=== PATIENT | female | born 1975 | race Caucasian/White ===

== ENCOUNTER → 2018-08-29 09:14 | Outpatient (CLI) | payer OTHER, SELFPAY ==
[2018-08-29 09:02] VITALS: BMI 34.4
--- NOTE | 2018-08-29 09:20 | RAD_ITS ---
STUDY: X-RAY CHEST REASON FOR EXAM: Female, 43 years old. Cough. Asthma. TECHNIQUE: PA and lateral views of the chest. COMPARISON: None. FINDINGS: Cardiac silhouette unremarkable. Pulmonary vascularity unremarkable. Aorta unremarkable. No focal patchy airspace opacities. No pleural effusions. Upper abdomen unremarkable. Osseous structures intact. No pneumothorax. RAD/Chest PA and Lateral IMPRESSION: No acute cardiopulmonary findings Electronically Signed: Quinn Gerard DO at 10:03 EDT Tel , Service support ,
== END ==
PROVIDERS: Family Provider Family Medicine; PCP Family Medicine; Referring Provider Physician Assistant; Visit Provider Physician Assistant
DX: J45.901 Unspecified asthma with (acute) exacerbation (principal)
CPT/HCPCS: 71046

== ENCOUNTER 2020-08-08 12:37 | Outpatient (RCR) | payer OTHER, SELFPAY ==
[2019-04-12 14:31] VITALS: BMI 34.4
== END 2020-08-08 23:59 ==
LOC: IMMUN 12:37
PROVIDERS: PCP Nurse Practitioner Family; Visit Provider Family Medicine
DX: Z23 Encounter for immunization (principal)
CPT/HCPCS: 0011A; 0012A

== ENCOUNTER 2021-01-04 21:11 | Emergency (ER) | payer OTHER, SELFPAY ==
[2020-10-22 13:51] VITALS: BMI 34.4
[2021-01-04 21:12] VITALS: BP 131/81; PULSE 106; RESP 16; TEMP 36.6; O2SAT 96; BMI 33.3
--- NOTE | 2021-01-04 21:24 | RAD_ITS ---
STUDY: X-RAY - RIGHT KNEE REASON FOR EXAM: Female, 45 years old. Injury TECHNIQUE: 4 view(s) of the knee. COMPARISON: None. FINDINGS: Normal visualized distal femur. Normal visualized proximal tibia and fibula. Normal proximal tibiofibular articulation. Normal medial femorotibial compartment. Normal lateral femorotibial compartment. Normal patellofemoral articulation. The soft tissue structures are unremarkable. RAD/Knee 4 or More Views IMPRESSION: Normal x-ray examination of the knee. Electronically Signed: Dheeraj Hernandez DO at 22:40 EDT Tel [phone], Service support ,
--- NOTE | 2021-01-04 21:24 | CT_ITS ---
STUDY: CT BRAIN WITHOUT CONTRAST REASON FOR EXAM: Female, 45 years old. Head injury RADIATION DOSAGE (If Supplied By Facility): CTDIvol = ( 44.99 ) mGy, DLP = ( 849.54 ) mGycm TECHNIQUE: Transaxial CT imaging of the brain was performed without administration of intravenous contrast material. Individualized dose optimization techniques were used for this CT. COMPARISON: No relevant priors. FINDINGS: There is a left parietal scalp hematoma near the vertex. Normal calvarium. Normal size ventricles and extra-axial spaces for the patient''s age. Normal white matter tracts of the cerebral hemispheres. Normal basal ganglia and thalami. Normal brainstem. Normal cerebellum. There is no intracranial hemorrhage. There are no findings of an acute ischemic infarction. Mucosal thickening of the visualized paranasal sinuses. CT/Brain/Head without Contrast IMPRESSION: No acute intracranial pathology of the brain. Left parietal scalp hematoma. Paranasal sinus disease. Electronically Signed: Dheeraj Hernandez DO at 22:34 EDT Tel [phone], Service support ,
--- NOTE | 2021-01-04 21:25 | EDS_ITS ---
HPI History of Present Illness Chief Complaint: Head Injury Detail of Chief Complaint: Fall with head injury Informant: patient Narrative Narrative: Patient presents the emergency department after sustaining a fall off her porch this evening. Patient states that she was getting rid of some empty bottles into some garbage cans but fell off the deck about 4 5 feet landing on a garbage cans. She denies loss of consciousness. She complains of a headache. She is up-to-date on tetanus. Patient has been ambulatory since the fall but complains of bilateral knee pain. She denies neck pain, chest pain, or abdominal pain. Prior similar symptoms: No PFSH PFSH Medical History (Updated 01/04/21 @ 22:[address] Tanya Richards, DO) Asthma Gestational diabetes Hemorrhoids SOB (shortness of breath) Home Medications albuterol sulfate 90 mcg/actuation aerosol inhaler INHALATION 17 Days #18 g 06/16/18 [History Last Taken Unknown] montelukast 10 mg tablet PO 30 Days #30 tab 06/16/18 [History Last Taken Unknown] methylprednisolone 4 mg tablets in a dose pack See Rx Instructions PO PER PKG D IR #21 tab 08/29/18 [Rx Last Taken Unknown] Allergy/AdvReac Type Severity Reaction Status Date / Time No Known Allergies Allergy Unverified 01/04/21 21:14 Surgical History H/O section History of laparoscopy Social History (Updated 08/29/18 @ 10:12 by Singh WANG, PA) Smoking Status: Former smoker alcohol intake: current alcohol intake frequency: holidays/special occasions only Alcohol type: beer and wine ROS ROS ED Constitutional Constitutional ED: Reports systems reviewed and no addt'l complaints, except as documented; Denies body ache(s), change in weight or chills Eyes Eyes: Denies acute decrease in peripheral vision, change in vision, double vision or loss of vision ENT ENT ED: Reports none; Denies ear pain, lip swelling, loss taste/smell, neck pain, otalgia or sore throat Cardiovascular Cardiovascular: Reports none; Denies abdominal pain, chest pain with activity, leg edema, lightheadedness, palpitations, rapid heart rate or syncope Respiratory/Chest Respiratory/Chest: Reports none; Denies change in mental status, dry cough, dyspnea, hemoptysis, shortness of breath at rest or shortness of breath with exertion Gastrointestinal Gastrointestinal: Reports none; Denies abdominal pain, change in stool character, diarrhea, hematemesis, hematochezia, melena, rectal bleeding or vomiting Genitourinary Genitourinary ED: Reports none; Denies abdominal discomfort, anuria, dysuria, genital pain or polyuria Musculoskeletal Musculoskeletal: Reports none and other Details: Bilateral knee pain ; Denies arthralgias, back pain, difficulty walking, extremity pain, muscle weakness or myalgias Integumentary Reports none; Denies abscess or rash Neurologic Neurologic: Reports headache(s) Psychiatric Psychiatric: Reports systems reviewed and no addt'l complaints, except as documented and none; Denies behavioral changes, confusion, difficulty concentrating, hallucinations, suicidal ideation, tactile hallucinations or visual hallucinations Endocrine Endocrinology: Denies none, cold intolerance, excessive sweating, fatigue or heat intolerance Hematologic/Lymphatic Hematologic/Lymphatic: Reports none; Denies anemia, easy bleeding or easy bruising Allergic/Immunologic Allergic/Immunologic ED: Denies as per HPI, none, lip swelling, mouth swelling, throat swelling, tongue swelling or hives EXAM Physical Exam Const Vital Signs: 01/04/21 21:12 01/04/21 21:28 Temperature 98 F Temperature Source Temporal Pulse Rate 106 H Respiratory Rate 16 Respiratory Depth Normal Respiratory Pattern Normal Blood Pressure 131/81 H Blood Pressure Mean 97 Pulse Ox 96 Oxygen Delivery Method Room Air Positive well nourished and well developed General Appearance ED: well developed and NAD HEENT Reports TM's clear and moist mucous membranes HEENT Narrative: Patient has a hematoma to the left posterior occiput without bony step-offs noted. normocephalic; Negative for trauma or tenderness Tympanic Membrane ED: Yes TM's clear Eyes PERRL and EOMs intact bilaterally General Eye ED: Negative for pale conjunctiva or scleral icterus Neck no lymphadenopathy, supple and no JVD General: Negative for tenderness Chest Wall inspection of chest normal and palpation of chest normal Chest: Negative for tenderness Resp normal respiratory effort and clear to auscultation bilaterally Effort and Inspection: Negative for respiratory distress or pain with movement Auscultation: Negative for rhonchi, wheezes or diminished lung sounds Cardio regular rate, regular rhythm, S1 normal heart sound, S2 normal heart sound and no murmurs Peripheral Pulses: pulses 2+ throughout GI normal to inspection, nondistended, normoactive bowel sounds, soft to palpation, non-tender, non-distended and no masses Back/Spine no CVA tenderness and no thoracic nor lumbar tenderness Extremity Extremity Narrative: Patient has superficial abrasions to the right anterior knee with mild diffuse bony tenderness on exam. Patient with mild diffuse tenderness over the left knee as well. Good range of motion in flexion extension. No obvious deformity. Neurovascular intact distally. General Extremety ED: Negative for edema General Extremity: Negative for edema Neuro oriented x3, CN's II-XII intact bilaterally, no sensory deficits noted and gait normal Sensorium / Orientation: awake, alert, oriented to person, oriented to place and oriented to time Motor Exam: strength 5/5 throughout and strength abnormal Psych mental status grossly normal Skin no rashes or lesions noted and no wounds MDM MDM MDM Narrative Medical decision making narrative: Patient advised to use Tylenol for dis comfort. She will be given an Ezra wrap for her knee. Patient to follow-up with her primary care physician 3 to 5 days. Radiography Diagnostic Testing: Radiology Impression Brain CT 01/04/21 21:24 IMPRESSION: No acute intracranial pathology of the brain. Left parietal scalp hematoma. Paranasal sinus disease. Electronically Signed: Dheeraj Hernandez DO at 22:34 EDT Tel [phone], Service support , Knee X-Ray 01/04/21 21:24 IMPRESSION: Normal x-ray examination of the knee. Electronically Signed: Dheeraj Hernandez DO at 22:40 EDT Tel [phone], Service support , Cervical Spine X-Ray 01/04/21 21:35 IMPRESSION: Mild degenerative changes of the visualized cervical spine. Mild compression of C5, likely nonacute. Electronically Signed: Dheeraj Hernandez DO at 22:40 EDT Tel [phone], Service support , Three-view x-rays of patient's C-spine obtained interpreted by myself as no acute fractures or dislocations. Radiology felt there may be an old slight compression fracture of C5. Patient had x-rays of the right knee which were interpreted by myself as no acute fractures or dislocations. Radiology was in agreement. Discharge Plan Triage Chief Complaint: Head Injury ED Provider: Tanya Richards Dx/Rx/DC Orders Clinical Impression: Fall, Closed head injury, Contusion of knee Instructions: ED Concussion, ED Contusion, Lower Extremity, ED Head Injury (Adult) Prescriptions: No Action montelukast 10 mg tablet PO 30 Days Qty: 30 RF: 0 albuterol sulfate 90 mcg/actuation HFA aerosol inhaler INHALATION 17 Days Qty: 18 RF: 0 methylprednisolone 4 mg tablets,dose pack See Rx Instructions PO PER PKG DIR Qty: 21 RF: 0 Primary Care Provider: Sandy Kirkpatrick NP Referrals: Sandy Kirkpatrick NP, [employer]IST[employer] MANAGER-C [Primary Care Provider] - 3-5 Days Disposition Disposition: Home, Self Care
--- NOTE | 2021-01-04 21:35 | RAD_ITS ---
STUDY: X-RAY - CERVICAL SPINE REASON FOR EXAM: Female, 45 years old. Fall TECHNIQUE: 3 view(s) of the cervical spine were obtained. COMPARISON: None FINDINGS: Normal anterior atlantoaxial articulation. Normal odontoid process. Normal cervical lordosis. Mild degenerative changes of the vertebral bodies. There is mild wedge compression of C5, likely nonacute.. Probable old C5 transverse process fracture. Normal disc space heights. The soft tissue structures are unremarkable. RAD/Cerv Spine 2 or 3 Views IMPRESSION: Mild degenerative changes of the visualized cervical spine. Mild compression of C5, likely nonacute. Electronically Signed: Dheeraj Hernandez DO at 22:40 EDT Tel [phone], Service support ,
[2021-01-04] MEDS: Acetaminophen 325 MG Tablet 650 MG PO (22:55)
== END 2021-01-04 23:04 | disposition home or self-care (01) ==
PROVIDERS: Emergency Provider Emergency Medicine; PCP Nurse Practitioner Family
DX: S00.03XA Contusion of scalp, initial encounter (principal); S80.01XA Contusion of right knee, initial encounter; M25.562 Pain in left knee; W17.89XA Other fall from one level to another, initial encounter; Y93.E9 Activity, other interior property and clothing maintenance; Y92.008 Other place in unspecified non-institutional (private) residence as the place of occurrence of the external cause; Y99.9 Unspecified external cause status; J45.909 Unspecified asthma, uncomplicated; Z79.899 Other long term (current) drug therapy; Z87.891 Personal history of nicotine dependence
CPT/HCPCS: 70450; 72040; 73564; 99283

== ENCOUNTER 2021-07-25 09:01 | Outpatient (CLI) | payer OTHER, SELFPAY ==
[2021-07-25 09:57] LABS: Hematocrit 38.4 % (37-47); Hemoglobin 12.3 g/dL (12.0-15.0); Mean Corpuscular Hgb 27.9 pg (27.0-32.0); Mean Corpuscular Volume 87.1 fL (81-99); Mean Platelet Vol. 10.3 fl (6.2-12.0); Platelet Count 285 K/mm3 (150-450); RBC Distribution Width CV 13.7 % (11.6-14.6); RBC Distribution Width SD 43.5 fl (35.1-43.9); Red Blood Count 4.41 M/mm3 (4.2-5.4); White Blood Count 6.7 K/mm3 (4.4-11.0)
== END 2021-07-25 23:59 | disposition home or self-care (01) ==
PROVIDERS: PCP Nurse Practitioner Family; Referring Provider Internal Medicine Pulmonary Disease; Visit Provider Internal Medicine Pulmonary Disease
DX: J45.909 Unspecified asthma, uncomplicated (principal)
CPT/HCPCS: 36415; 85027

== ENCOUNTER → 2022-07-31 | Outpatient (CLI) | payer OTHER, SELFPAY ==
[2022-07-31 12:43] LABS: Hematocrit 38.5 % (37-47); Mean Corp Hgb Conc 31.2 g/dL (32-36); Mean Corpuscular Hgb 27.6 pg (27.0-32.0); Mean Corpuscular Volume 88.7 fL (81-99); Mean Platelet Vol. 10.9 fl (6.2-12.0); Platelet Count 280 K/mm3 (150-450); RBC Distribution Width CV 13.1 % (11.6-14.6); RBC Distribution Width SD 42.7 fl (35.1-43.9); Red Blood Count 4.34 M/mm3 (4.2-5.4); White Blood Count 8.4 K/mm3 (4.4-11.0)
== END | disposition home or self-care (01) ==
LOC: LAB 11:27
PROVIDERS: PCP Nurse Practitioner Family; Referring Provider Internal Medicine Pulmonary Disease; Visit Provider Internal Medicine Pulmonary Disease
DX: J45.909 Unspecified asthma, uncomplicated (principal); R05.9 Cough, unspecified
CPT/HCPCS: 36415; 85027

== ENCOUNTER 2023-09-16 08:20 | Day surgery (SDC) | payer OTHER, SELFPAY ==
[2023-09-09 17:09] LABS: Absolute Neutrophil Count 5.4 X10^3/uL (2.0-7.7); Basophil# 0.03 X10^3/uL; Basophil% 0.4 % (0-1); Eosinophil# 0.14 X10^3/uL; Eosinophils% 1.8 % (0-5); Hematocrit 33.8 % (37-47); Hemoglobin 10.6 g/dL (12.0-15.0); Lymphocyte % 22.9 % (19-41); Mean Corp Hgb Conc 31.4 g/dL (32-36); Mean Corpuscular Hgb 27.1 pg (27.0-32.0); Mean Corpuscular Volume 86.4 fL (81-99); Mean Platelet Vol. 10.3 fl (6.2-12.0); Monocyte# 0.47 X10^3/uL; NRBC Flagged by Analyzer 0 % (0-5); Neutrophil # 5.39 X10^3/uL (2.7-7.7); Neutrophil % 68.5 % (47-70); Platelet Count 328 K/mm3 (150-450); RBC Distribution Width CV 13.6 % (11.6-14.6); RBC Distribution Width SD 42.4 fl (35.1-43.9); Red Blood Count 3.91 M/mm3 (4.2-5.4); White Blood Count 7.9 K/mm3 (4.4-11.0)
[2023-09-09 17:26] LABS: Anion Gap 5 (5-15); BUN 10 mg/dL (7-18); BUN/Creat Ratio 11.1 RATIO (10-20); Chloride 106 mmol/L (98-107); EST Glomerular Filtration Rate 70 mL/min (>60); Est Glom Filt Rate - Afr Amer 85 mL/min (>60); Glucose 117 mg/dL (74-106); Potassium 3.9 mmol/L (3.5-5.1); Sodium Level 140 mmol/L (136-145)
[2023-09-16 08:51] VITALS: BP 129/78; PULSE 74; RESP 16; TEMP 36.9; O2SAT 99; BMI 38.0
[2023-09-16] MEDS: Lactated Ringers 1,000 ML 15 ML IV (09:32)
[2023-09-16] MEDS: Cefazolin 2 GM in 0.9% Normal Saline (100mL Bag) 100 ML IV (11:07)
[2023-09-16] MEDS: Lidocaine 1%/Epi 1:200 (30ml) 30 ML AMPUL (11:29)
--- NOTE | 2023-09-16 11:39 | PCM.OPRPT ---
Report of Operation Date of Procedure: 09/16/23 Description of Surgical Findings:: Preoperative diagnosis: Left carpal Tunnel Syndrome Postoperative diagnosis: Left carpal Tunnel Syndrome Procedure: Left endoscopic Carpal Tunnel Release Surgeon: Aaron Pereira DO cardiology physician assistant: Soni Medina PA-C Retort Setter: Jade Anesthesia: MAC with local Anesthesiologist: Dr. Vaughn Complications: None Drains: None Estimated blood loss: 2 cc Urinary output: None measured IV fluids: Per anesthesia record Specimens: None Surgical implants: None Surgical indications: This is a 48 female seen in the outpatient setting diagnosed with left carpal tunnel syndrome. The patient failed nonoperative management in the form of bracing, anti-inflammatory medications, activity modification. Carpal tunnel syndrome was confirmed on EMG/NCV. Operative intervention in form of endoscopic possible open carpal tunnel release was offered to the left hand. The risks, benefits, alternatives to procedure were reviewed with patient at length in the outpatient setting and he agreed to proceed. Risks included but were not limited to bleeding, infection, loss of life or limb, risk of anesthesia, incomplete release, neurovascular injury, persistent pain, need for additional surgery, stiffness, loss of hand function. Patient expressed understanding wish to proceed with surgery. Informed consent obtained in the office. Description of procedure: Patient was seen in preoperative holding area. Patient was identified by name, medical record number, date of . The operative extremity was marked with a surgical marker. We confirmed informed consent with the patient and all questions were answered to the patient's satisfaction. At time of his procedure, patient was brought to the operative suite and positioned supine a standard operating table. All bony prominences were well-padded. General anesthesia was induced and endotracheal tube placed. The operative upper extremity was then prepped for surgery by first applying a well-padded pneumatic tourniquet to the left forearm. The hand table attached to the left side of the table. We spun the bed 90 degrees. I then administered tumescent field block with 15 cc total 1% lidocaine with epinephrine 1: 100,000. We prepped and draped the left hand and wrist in a normal, sterile orthopedic fashion. 2 g Ancef was administered prior to incision by anesthesia staff. We performed a timeout at this point confirming side, site, and operation to be performed. No concerns voiced and elected to proceed. I exsanguinated the left hand and wrist with an Esmarch bandage. Tourniquet was inflated to 250 mmHg which remained up for 3 minutes. I first marked a transverse incision on the ulnar aspect of the palmaris longus tendon in the proximal wrist crease approximately 1 cm in length. Skin was sharply incised with 15 blade scalpel. Superficial veins were cauterized with bipolar cautery. The fatty layer was dissected through bluntly until the antebrachial fascia was encountered. The antebrachial fascia were split in line with the fibers as well as the incision with the Littler scissors. I then placed a skin hook around the antebrachial fascia distally. I open the proximal 1 cm longitudinally of the antebrachial fascia. I then sequentially dilated within the carpal tunnel utilizing Arthrex supplied dilators. I then utilized there synovial elevator to debride the undersurface of the transverse carpal ligament free from synovium. I then removed the elevator and inserted the centerline endoscopic carpal tunnel release system. The transverse carpal ligament was well visualized and free from underlying synovium. I identified its distal aspect by blotting the skin and perivascular fat was visualized. I then carefully deployed the scalpel from the sheath and, in retrograde fashion, sequentially released the transverse carpal ligament longitudinally. No aberrancies of the median nerve were apparent. Complete release was confirmed with Littler scissors acting as a probe. The tourniquet was then deflated. There was excellent return of perfusion to the hand. Hemostasis was excellent. Skin was closed with a single horizontal mattress suture of 4-0 nylon suture. Sterile compression dressing was then applied. Patient tolerated procedure well without apparent complication.She was transferred to PACU in stable condition. Post Operative Plan: Weightbearing: Weightbearing less than 2 pounds operative extremity Antibiotics: Ancef 2 g x 1 dose preoperatively DVT Prophylaxis: None indicated Sotomayor: None Dressing: Okay to remove soft dressing on postoperative day #2 and shower. No tub soaks. X-Rays: 2 weeks postop in the office Pain Medication: Hydrocodone Rx upon discharge Follow-up: 2 weeks post-operatively in the office for suture removal.
[2023-09-16 11:40] VITALS: BP 119/79; BP 129/78; PULSE 91; RESP 16; TEMP 36.2; O2SAT 96
[2023-09-16 11:45] VITALS: BP 128/100; BP 129/78; PULSE 79; RESP 16; O2SAT 95
[2023-09-16 11:50] VITALS: BP 128/83; BP 129/78; PULSE 82; RESP 16; O2SAT 95
[2023-09-16 12:00] VITALS: BP 125/83; BP 129/78; PULSE 81; RESP 16; TEMP 36.1; O2SAT 100
[2023-09-16 12:45] VITALS: BP 129/78
== END 2023-09-16 12:52 | disposition home or self-care (01) ==
LOC: SDC 08:22 → AC 08:22
PROVIDERS: PCP Nurse Practitioner Family; Referring Provider Student in an Organized Health Care Education/Training Program; Visit Provider Student in an Organized Health Care Education/Training Program
PROC: (CPT 29848; principal; 2023-09-16 10:00)
DX: G56.02 Carpal tunnel syndrome, left upper limb (principal); K21.9 Gastro-esophageal reflux disease without esophagitis; J45.909 Unspecified asthma, uncomplicated; Z87.891 Personal history of nicotine dependence; E66.9 Obesity, unspecified; Z68.39 Body mass index [BMI] 39.0-39.9, adult
CPT/HCPCS: 29848; 01810; 36415; 80048; 85025; J7120; J2405

== ENCOUNTER 2023-10-25 16:30 | Outpatient (RCR) | payer OTHER, SELFPAY ==
--- NOTE | 2023-10-12 14:06 | HP.OTEVAL ---
Patient's Visit Information Visit Information Visit Information: JOHANA SALGUERO is a 48 year old F, referred to Occupational Therapy by FELIPE Leo, with a diagnosis of right hand/finger pain. Date of Evaluation: 10/11/23 Occupational Therapist: Twila Zamora, KALEB/Keely, CHT Subjective Subjective: This 48 year old female was seen for OT eval with dx of right finger pain and right hand pain. pt states Nov. 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 Not sure what happened- pt states she did have blood work done ( to check for inflammatory markers for arthritis but has not check on the blood work yet) pt states stiffness in AM and PM- pt states she has noticed increase in right LF pain as well- ADLs Kitchen: Open jars and Open bottle caps Comments: helps Comments: pt states helps with home mtg tasks pt states she does clean her dads house weekly and notices pain with some of the cleaning tasks- use of signature stamp for work as her hand hurts when she does this. Pain right hand: Current Pain Intensity: 0 Pain Intensity Range: 6 ROM MP: IFR +5/80 L +5/75 MF R+5/80 L +5/75 RF R+5/80 L +1-/70 SF R +10/75 L+10/50 PIP: IFR0/80 L 0/100 MF R 0/90 L 0/100 RF R 0/100 L 0/95 SM R 0/95 L 0/85 DIP: IF R /45 L 0/60 MF R 0/35 l 0/60 RF R 0/50 L 0/55 LF R 0/40 L /50 ROM Comments: pt demo ROM WFL noted bruising on LF Strength Radio Communication Coordinator: right 30# left 40# Lateral Pinch: right 14# left 16# Tripod Pinch: right 12# left 16# Strength Comments: slight weakness of dominate hand Sensation Sensation Comments: pt states left hand since sx feels great! no issues with right hand tingling Quick DASH-Disab of Arm,Shoulder& Hand Quick DASH Score: 44.6425 Goals Goal:: pt will demo a increase in right banquet chef strength by 15# or greater to return to her PLOF with ADLs by d.c Goal:: pt will demo full composite fist without report of pain by d.c to increase grasp on small objects by d.c Goal:: pt will report no pain greater than 2/10 with use of right hand with ADLs and IADLs by d.c Goal:: Pt will demo understanding of work/lifting and carry ergonomics to decrease stress on tendons to increase pts independent with ADLs, IADLS and work tasks by d/c. Pt will demo understanding of using supportive bracing 80% of workday/ADLS to decrease stress on tendon origin to allow healing and decrease pain by end of 2nd session. Goal:: pt will demo a decrease on quick dash by 15 points indication of pts progress by d/c Rehabilitation General Assessment: pt demo with weakness and pain of right hand limiting use of her dominate hand for ADLs and work tasks. Pt voices irritation with joint swelling and stiffness. Pt would benefit from skilled OT services to decrease pain and increase functional use of right hand without stressing on joints/lig/tend. Today therapist ed. pt on ergo of fingers/wrist and to avoid unnatural joint movement. ( avoid stressing finger flexion with one finger while all others are in extension). Pt demo understanding- Therapist advised to cont. use of compression glove- use of contrast bath as able to decrease joint stiffness. along with use of k-tape to provide support but allow for full functional ROM. Pt demo understanding and agree to POC. Rehabilitation Potential: Good Anticipated Interventions Anticipated Interventions: A/AAROM/PROM, Strengthening, Edema Control, Triggerpoint Release, Modalities, Orthoses, Joint Protection/Energy Conservation, Ergonomic Education, Education re assistive Equipment, Education re Diagnosis and Home Program Visit Plan Frequency: 1-2x /Week Duration: 4-6 Weeks TEXT: Thank you for the opportunity to evaluate your patient. For Medicare and Medicare HMO plans, please review the plan of care and approve it. It will need to be FAXED BACK to us at [phone] for Medicare purposes. Please let me know if there are questions or concerns regarding this plan of care. Physician Signature: Date:
--- NOTE | 2024-01-19 11:14 | HP.OT.NRP ---
Patient Information Patient Information: JOHANA SALGUERO was seen in my office for initial evaluation on 10/11/23. The following Plan of Care was established for this patient: POC Established Initial Frequency: 1-2x /Week Initial Duration: 4-6 Weeks Anticipated Interventions Anticipated Interventions: A/AAROM/PROM, Strengthening, Edema Control, Triggerpoint Release, Modalities, Orthoses, Joint Protection/Energy Conservation, Ergonomic Education, Education re assistive Equipment, Education re Diagnosis and Home Program Last Seen Last Seen: This patient was last seen in our office 10/25/23. Pertinent comments regarding their Occupational therapy will appear below: pt has not scheduled further OT sessions and due to time lapse in services pt is d/c at this time. At this point I will be discontinuing this patient from occupational therapy. I would be happy to see this patient again in the future if found appropriate by the physician. Thank you! Twila Zamora, OTR/L, CHT
== END 2023-10-25 19:00 | disposition home or self-care (01) ==
LOC: OT 16:30
PROVIDERS: PCP Nurse Practitioner Family; Referring Provider Physician Assistant Surgical; Visit Provider Physician Assistant Surgical
DX: M79.644 Pain in right finger(s) (principal); M79.641 Pain in right hand
CPT/HCPCS: 97035; 97140; 97167; 97530

== ENCOUNTER → 2024-11-16 | Outpatient (CLI) | payer OTHER, SELFPAY ==
[2024-11-16 09:01] LABS: Erythrocyte Sedimentation Rate 10 mm/hr (0-30)
[2024-11-17 15:08] LABS: Angiotensin Convert Enzyme 47 U/L (14-82)
== END | disposition home or self-care (01) ==
LOC: LAB 08:24
PROVIDERS: PCP Nurse Practitioner Family; Referring Provider Internal Medicine Pulmonary Disease; Visit Provider Internal Medicine Pulmonary Disease
DX: J45.30 Mild persistent asthma, uncomplicated (principal); R06.02 Shortness of breath
CPT/HCPCS: 36415; 82164; 85652; 86140